=== PATIENT | male | born 1950 | race Caucasian/White ===

== ENCOUNTER → 2020-10-14 11:35 | Outpatient (BNVA) | payer OTHER, SELFPAY | PROVIDERS: PCP Family Medicine; Referring Provider Surgery; Visit Provider Surgery | DX: Z20.822 Contact with and (suspected) exposure to COVID-19 (principal) | CPT/HCPCS: 87635 ==

== ENCOUNTER 2020-10-20 06:48 | Day surgery (SDC) | payer OTHER, SELFPAY ==
[2020-10-18 09:56] VITALS: BMI 27.9
[2020-10-20 07:07] VITALS: BP 148/101; PULSE 91; RESP 18; TEMP 36.7; O2SAT 98
--- NOTE | 2020-10-20 07:20 | ANES.PREANE2 ---
Pre-Anesthetic Assessment Pre-Anesthetic Assessment: Height/Weight: Height 1.78 m Weight 88.451 kg Temp Pulse Resp BP Pulse Ox 98.1 F 91 18 148/101 98 10/20/20 07:07 10/20/20 07:07 10/20/20 07:07 10/20/20 07:07 10/20/20 07:07 Preop Diagnosis: Nonintentional weight loss and change in bowel habits Proposed Procedure: Operation Date: 10/20/20 08:00 Proposed Procedures p EGD [id number] k52.9(Not Applicable) - Marcus Ramirez MD s Colonoscopy(Not Applicable) - Marcus Ramirez MD Familial anesthetic complications: none Was Beta Vincent taken within 24 hours: N/A Was Clonidine taken within 24 hours: N/A Last intake: Intake Last Liquid Date 10/19/20 Last Liquid Time 20:00 Last Solid Date 10/18/20 Last Solid Time 22:30 Last Intake: 20:00 Social: Social History: No alcohol and No tobacco Exam: Pre-Anes Outpt Exam: alert, oriented x 3, clear to auscultation bilaterally and regular rate & rhythm (murmor) Airway: Submandibular: WNL Cervical ROM: WNL MP: 1 Dentition: False Pulmonary: Pulmonary: None reported CV/HEM: CV/HEM: HTN and Murmur : : None reported Hepatic: Hepatic: None reported GI: GI: None reported Metabolic: Metabolic: DM (50-250) Musc/skel: Musc/skel: None reported Neuropsych: Neuropsych: TIA (4 years ago. loss of balance that resolved within a min) Anesthetic Plan: ASA status: 3 Anesthesia: MAC PFSH Anesthesia PFSH: Family History Other CAD (coronary artery disease) Diabetes Hypertension Denies family history of Cancer Stroke Social History Smoking and tobacco status: never smoked Alcohol intake: current Alcohol intake frequency: holidays/special occasions only Lives independently: Yes Household members: spouse Data Anesthesia Cardiac Studies: No Data to Display
[2020-10-20 07:23] LABS: Glucose Point of Care 110 mg/dL (70-110)
[2020-10-20] MEDS: sodium chloride 0.9% 1,000 ML 30 ML IV (07:32)
--- NOTE | 2020-10-20 07:56 | P.HP_ITS ---
Same Day Surgery H&P Indication for Procedure/HPI DATE OF PROCEDURE: October 20, 2020 CHIEF COMPLAINT/INDICATIONFOR SURGICAL PROCEDURE: Weight loss and change in bowel habits PREOP DIAGNOSIS: Nonintentional weight loss and change in bowel habits PLANNED PROCEDRUE: Operation Date: 10/20/20 08:00 Proposed Procedures p EGD [id number] k52.9(Not Applicable) - Marcus Ramirez MD s Colonoscopy(Not Applicable) - Marcus Ramirez MD This is a pleasant 64 years old gentleman referred to my practice with history of chronic diarrhea for the past couple of years. Every morning with go 2-3 times up to 15 times a day per his description, patient describes that he had weight loss used to be 250 pounds and dropped 170 then currently 191 pound. Patient is referred to me for further evaluation and potential intervention. Patient denies history of colon cancer and he had a colonoscopy back in September 2018 or 2019 but he does not remember exactly when. Patient is referred to me for further evaluation as he has been concerned about his change in bowel habits without obvious explanation. Patient denies history of inflammatory bowel disease there is a history of irritable bowel syndrome. And he reports to me that he stopped taking any milk products as it just make it worse. No evidence of contact with sick personnel or recent travels or antibiotics. Interim history 10/20/2020 Patient comes today for diagnostic EGD and colonoscopy ROS All systems have been reviewed negative except as per the above or per problem list Medications/Allergies* Home Medications Medication Instructions Recorded Confirmed Type amlodipine 2.5 mg tablet 2.5 mg PO DAILY 08/08/20 10/18/20 History aspirin 81 mg tablet,delayed 81 mg PO DAILY 08/08/20 10/20/20 History release insulin aspart U-100 100 unit/mL 5 unit SUBCUT TID 08/08/20 10/18/20 History subcutaneous solution insulin glargine 100 unit/mL 40 unit SUBCUT BEDTIME 08/08/20 10/18/20 History subcutaneous solution vitamin B comp and C no.3 15 mg-10 1 cap PO DAILY 08/08/20 10/20/20 History mg-50 mg-5 mg-300 mg capsule Lactobacillus 1 cap PO DAILY cap 10/04/20 10/20/20 History no.37-B.animalis,longum 142 mg (10 billion cell) capsule alpha lipoic acid 300 mg capsule 300 mg PO DAILY 10/04/20 10/18/20 History lisinopril 20 1 tab PO DAILY 10/04/20 10/18/20 History mg-hydrochlorothiazide 25 mg tablet Allergies/Adverse Reactions Allergy/AdvReac Type Severity Reaction Status Date / Time No Known Allergies Allergy Verified 10/20/20 07:57 Current Medications: Generic Name Dose Route Start Last Admin Trade Name Aure PRN Reason Stop Dose Admin Sodium Chloride 1,000 mls @ 30 mls/hr 10/20/20 07:00 10/20/20 07:32 Sodium Chloride 0.9% IV 30 mls/hr .Q24H TUYET Administration Pertinent History/Comorbid Conditions* Family History (Updated 08/08/20 @ 11:25 by Raiza Green) Diabetes CAD (coronary artery disease) Hypertension Denies family history of Cancer Stroke Social History Smoking and tobacco status: never smoked Alcohol intake: current Alcohol intake frequency: holidays/special occasions only Lives independently: Yes Household members: spouse Pertinent Exam Findings alert, oriented x 3, clear to auscultation bilaterally, regular rate & rhythm and procedure specific exam findings (Abdominal examination nontender nondistended soft) Recommendations Surgery/Procedure today (egd and colonoscopy ) Other Plans: Plan of care; After thorough history and physical examination and reviewing the chart, plan to perform a diagnostic esophagogastroduodenoscopy and diagnostic colonoscopy with possible biopsy and possible polypectomy. I discussed with the patient in detail the risks,benefits,alternatives and indications.The risk of aspiration, bleeding, soft tissue injury, perforation of the stomach/esophagus/colon and other potential concomitant complications were explained to the patient in details also the potential need for Thoracotomy and or Laproscoy/Laparotomy to repair any related complications including but not limited to colectomy and or Closotomy. The patient understood this well and did agree to proceed. Rationale was carefully and clearly discussed with the patient.Appropriate informed consent have been reviewed and signed Verbal and written Instructions were given to the patient for colonoscopy prep Coding Level of Care Code Acute Embedded Software Developer for Karlene Brar
[2020-10-20 08:35] VITALS: BP 98/73; PULSE 87; RESP 18; TEMP 37.3; O2SAT 99
--- NOTE | 2020-10-20 08:38 | ANE.PACU2 ---
Inpatient post-anesthesia follow up: Airway intact: Yes Vital signs: Temperature 99.1 F Pulse Rate 87 Respiratory Rate 18 Blood Pressure 98/73 Pulse Oximetry 99 Oxygen Delivery Me thod Room Air Oxygen Flow Rate Fraction of Inspir ed Oxygen Hydration adequate: Yes Nausea and vomiting: No Pain level: 1 Mental status: Baseline
[2020-10-20 08:51] VITALS: BP 95/69; PULSE 82; RESP 18; O2SAT 98
--- NOTE | 2020-10-20 16:54 | ANE.PACU2 ---
Inpatient post-anesthesia follow up: Airway intact: Yes Vital signs: Temperature 99.1 F Pulse Rate 82 Respiratory Rate 18 Blood Pressure 95/69 Pulse Oximetry 98 Oxygen Delivery Me thod Room Air Oxygen Flow Rate Fraction of Inspir ed Oxygen Hydration adequate: Yes Nausea and vomiting: No Pain level: 2 Mental status: Baseline
[2020-10-21 06:41] LABS: H. Pylori / CLO Test Negative
== END 2020-10-20 09:20 | disposition home or self-care (01) ==
PROVIDERS: PCP Family Medicine; Visit Provider Surgery
PROC: 0DJ08ZZ Inspection of Upper Intestinal Tract, Via Natural or Artificial Opening Endoscopic (ICD-10-PCS; CPT 43235; principal; 2020-10-20 08:00)
PROC: 0DJD8ZZ Inspection of Lower Intestinal Tract, Via Natural or Artificial Opening Endoscopic (ICD-10-PCS; CPT 45378; 2020-10-20 08:00)
DX: R19.4 Change in bowel habit (principal); R63.4 Abnormal weight loss; Z68.28 Body mass index [BMI] 28.0-28.9, adult; Z79.82 Long term (current) use of aspirin; Z79.4 Long term (current) use of insulin; E11.9 Type 2 diabetes mellitus without complications; I25.10 Atherosclerotic heart disease of native coronary artery without angina pectoris; I10 Essential (primary) hypertension; Q27.33 Arteriovenous malformation of digestive system vessel; K29.70 Gastritis, unspecified, without bleeding; K29.80 Duodenitis without bleeding; Z86.73 Personal history of transient ischemic attack (TIA), and cerebral infarction without residual deficits
CPT/HCPCS: 36416; 43239; 45378; 82274; 82962; 83630; 87077; 87493; 87506; 96360; J2704; J7030

== ENCOUNTER 2020-11-25 14:34 | Outpatient (CLI) | payer OTHER, SELFPAY ==
--- NOTE | 2020-11-25 14:43 | USCV_ITS ---
Kenneth Brunson Age: 70 Gender: M : 1950 Exam Date: 11/25/2020 14:23 Ordering Phys: Vinh Smith DPM Technologist: Kraig Awad Exam Location: [facility] [place] Indication: PAD RIGHT LEFT Brachial 118.00 mmHg Brachial 120.00 mmHg Pressure (mmHg) Waveform Pressure (mmHg) Waveform 148.00 Above Knee 138.00 142.00 Below Knee 151.00 119.00 LARD REFINER 136.00 120.00 DPA 140.00 1.00 Ankle/Brachial Index 1.10 58.00 Pre-Exercise Toe Pressure 106.00 Pre-Exercise Toe/Brachial Index 0.88 0.48 FINDINGS Normal resting ABIs bilaterally Diminished resting TBI on the right side and normal resting TBI on the left side PVR waveforms showing some blunting of the dicrotic notch bilaterally CONCLUSIONS Abnormal resting TBI on the right side with a normal resting HI, suggestive of mild to moderate peripheral artery disease, involving the distal vessels. No significant arterial obstruction on the left side Dr Ellen Mirza MD FAC (Electronically Signed) Final Date: 28 November 2020 09:23 S
== END 2020-11-25 14:35 | disposition home or self-care (01) ==
PROVIDERS: PCP Family Medicine; Visit Provider Podiatrist Foot & Ankle Surgery
DX: R09.89 Other specified symptoms and signs involving the circulatory and respiratory systems (principal); I73.9 Peripheral vascular disease, unspecified
CPT/HCPCS: 93923

== ENCOUNTER → 2021-10-31 09:51 | Outpatient (BNVA) | payer OTHER, SELFPAY | PROVIDERS: PCP Family Medicine; Visit Provider Podiatrist Foot & Ankle Surgery | DX: L84 Corns and callosities (principal); L60.3 Nail dystrophy; Z89.422 Acquired absence of other left toe(s); Z89.421 Acquired absence of other right toe(s); E11.42 Type 2 diabetes mellitus with diabetic polyneuropathy | CPT/HCPCS: 11055; 11721 ==

== ENCOUNTER → 2022-06-04 13:53 | Outpatient (BNVA) | payer OTHER, SELFPAY | PROVIDERS: PCP Family Medicine; Visit Provider Thoracic Surgery (Cardiothoracic Vascular Surgery) | DX: I96 Gangrene, not elsewhere classified (principal); E11.621 Type 2 diabetes mellitus with foot ulcer; L89.892 Pressure ulcer of other site, stage 2 | CPT/HCPCS: 11042; 99213 ==

== ENCOUNTER → 2022-06-13 13:46 | Outpatient (BNVA) | payer OTHER, SELFPAY | PROVIDERS: PCP Family Medicine; Visit Provider Nurse Practitioner Family | DX: E11.621 Type 2 diabetes mellitus with foot ulcer (principal); L97.412 Non-pressure chronic ulcer of right heel and midfoot with fat layer exposed | CPT/HCPCS: 99212 ==

== ENCOUNTER → 2023-04-30 10:14 | Outpatient (BNVA) | payer OTHER, SELFPAY | PROVIDERS: PCP Family Medicine; Visit Provider Podiatrist Foot & Ankle Surgery | DX: L60.3 Nail dystrophy; E11.42 Type 2 diabetes mellitus with diabetic polyneuropathy; I73.9 Peripheral vascular disease, unspecified; L84 Corns and callosities; Z89.422 Acquired absence of other left toe(s); Z89.421 Acquired absence of other right toe(s); Z79.4 Long term (current) use of insulin | CPT/HCPCS: 11055; 11721 ==

== ENCOUNTER → 2023-06-13 10:15 | Outpatient (BNVA) | payer OTHER, SELFPAY | PROVIDERS: PCP Family Medicine; Visit Provider Internal Medicine Cardiovascular Disease | DX: I95.1 Orthostatic hypotension (principal); Z86.73 Personal history of transient ischemic attack (TIA), and cerebral infarction without residual deficits; E11.42 Type 2 diabetes mellitus with diabetic polyneuropathy; Z79.4 Long term (current) use of insulin; I10 Essential (primary) hypertension; E78.2 Mixed hyperlipidemia | CPT/HCPCS: 99205 ==

== ENCOUNTER → 2023-08-07 14:44 | Outpatient (BNVA) | payer OTHER, SELFPAY | PROVIDERS: PCP Family Medicine; Visit Provider Podiatrist Foot & Ankle Surgery | DX: L84 Corns and callosities (principal); L60.3 Nail dystrophy; E11.42 Type 2 diabetes mellitus with diabetic polyneuropathy; Z79.4 Long term (current) use of insulin; Z89.412 Acquired absence of left great toe; Z89.421 Acquired absence of other right toe(s) | CPT/HCPCS: 11056; 11721 ==

== ENCOUNTER → 2023-09-04 09:22 | Outpatient (BNVA) | payer OTHER, SELFPAY | PROVIDERS: PCP Family Medicine; Visit Provider Nurse Practitioner Family | DX: I95.1 Orthostatic hypotension (principal) | CPT/HCPCS: 99213 ==

== ENCOUNTER → 2023-11-13 14:03 | Outpatient (BNVA) | payer OTHER, SELFPAY | PROVIDERS: PCP Family Medicine; Visit Provider Podiatrist Foot & Ankle Surgery | DX: L84 Corns and callosities (principal); L60.3 Nail dystrophy; E11.42 Type 2 diabetes mellitus with diabetic polyneuropathy; Z89.422 Acquired absence of other left toe(s); Z89.421 Acquired absence of other right toe(s); Z79.4 Long term (current) use of insulin | CPT/HCPCS: 11056; 11721 ==

== ENCOUNTER → 2024-02-17 12:52 | Outpatient (BNVA) | payer OTHER, SELFPAY | PROVIDERS: PCP Family Medicine; Visit Provider Podiatrist Foot & Ankle Surgery | DX: L84 Corns and callosities (principal); L60.3 Nail dystrophy; E11.42 Type 2 diabetes mellitus with diabetic polyneuropathy; Z89.422 Acquired absence of other left toe(s); Z89.421 Acquired absence of other right toe(s); Z79.4 Long term (current) use of insulin | CPT/HCPCS: 11056; 11721 ==

== ENCOUNTER → 2024-05-25 10:57 | Outpatient (BNVA) | payer OTHER, SELFPAY | PROVIDERS: PCP Family Medicine; Visit Provider Podiatrist Foot & Ankle Surgery | DX: E11.8 Type 2 diabetes mellitus with unspecified complications (principal); L60.3 Nail dystrophy; L84 Corns and callosities; E11.42 Type 2 diabetes mellitus with diabetic polyneuropathy; Z89.422 Acquired absence of other left toe(s); Z89.421 Acquired absence of other right toe(s); Z79.4 Long term (current) use of insulin | CPT/HCPCS: 11056; 11721 ==

== ENCOUNTER → 2024-08-18 11:12 | Outpatient (BNVA) | payer OTHER, SELFPAY | PROVIDERS: PCP Family Medicine; Visit Provider Podiatrist Foot & Ankle Surgery | DX: E11.42 Type 2 diabetes mellitus with diabetic polyneuropathy (principal); L60.3 Nail dystrophy; L84 Corns and callosities; L85.3 Xerosis cutis; Z89.422 Acquired absence of other left toe(s); Z89.421 Acquired absence of other right toe(s); Z79.4 Long term (current) use of insulin | CPT/HCPCS: 11056; 11721; 99213 ==

== ENCOUNTER → 2024-11-10 10:33 | Outpatient (BNVA) | payer OTHER, SELFPAY | PROVIDERS: PCP Family Medicine; Visit Provider Podiatrist Foot & Ankle Surgery | DX: E11.42 Type 2 diabetes mellitus with diabetic polyneuropathy (principal); L60.3 Nail dystrophy; L84 Corns and callosities; E11.8 Type 2 diabetes mellitus with unspecified complications; L85.3 Xerosis cutis; Z89.412 Acquired absence of left great toe; Z89.421 Acquired absence of other right toe(s); Z79.4 Long term (current) use of insulin | CPT/HCPCS: 11056; 11721; 99213 ==

== ENCOUNTER → 2025-02-15 12:55 | Outpatient (BNVA) | payer OTHER, SELFPAY | PROVIDERS: PCP Family Medicine; Visit Provider Podiatrist Foot & Ankle Surgery | DX: E11.8 Type 2 diabetes mellitus with unspecified complications (principal); L60.3 Nail dystrophy; L84 Corns and callosities; E11.42 Type 2 diabetes mellitus with diabetic polyneuropathy; L85.3 Xerosis cutis; Z89.421 Acquired absence of other right toe(s); Z89.412 Acquired absence of left great toe; Z79.4 Long term (current) use of insulin; Z79.85 Long-term (current) use of injectable non-insulin antidiabetic drugs | CPT/HCPCS: 11056; 11721 ==